=== PATIENT | male | born 1995 | race Caucasian/White ===

== ENCOUNTER 2017-12-08 05:48 | Emergency (ER) | payer OTHER ==
[~2017-12-08] VITALS: Ht 185.4 cm; Wt 79.4 kg
--- NOTE | 2017-12-08 06:16 | NUR ---
Jennyfer saucedo in ED - 12/08/17 at 0727 by RAJ REPORT GIVEN TO SARIKA VEGA FOR GLENDA.
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
--- NOTE | 2017-12-08 06:38 | NUR ---
PT LEFT FOR CT VIA [facility]
[2017-12-08] MEDS ORDERED: HYDROCODONE/APAP 5/325MG 1 EACH TABLET ONE (06:40)
[2017-12-08] MEDS ORDERED: CEFAZOLIN 1 GM ONE (06:41)
[2017-12-08] MEDS ORDERED: WATER FOR INJECTION,STERILE 10 ML ONE (06:41)
[2017-12-08] MEDS ORDERED: ONDANSETRON 4 MG TAB.RAPDIS ONE (06:41)
[2017-12-08] MEDS ORDERED: CEFAZOLIN 1 GM VIAL IM ONE (07:00)
[2017-12-08] MEDS ORDERED: HYDROCODONE/APAP 5/325MG 1 EACH TABLET PO ONE (07:00)
[2017-12-08] MEDS ORDERED: ONDANSETRON 4 MG TAB.RAPDIS PO ONE (07:00)
--- NOTE | 2017-12-08 07:16 | NUR ---
PT RETURNED FROM CT.
--- NOTE | 2017-12-08 07:16 | NUR ---
REPORT GIVEN TO SARIKA VEGA FOR GLENDA.
[2017-12-08] MEDS ORDERED: LIDOCAINE 1%-EPI 1:100,000 20 ML VIAL ONE (07:40)
--- NOTE | 2017-12-08 07:45 | NUR ---
DR HURLEY AT BEDSIDE FOR SUTURE
--- NOTE | 2017-12-08 08:28 | NUR ---
Patient discharged to home in stable condition. Written and verbal after care instructions given. Patient verbalizes understanding of instruction.
[2017-12-08 08:29] VITALS: BP 135/90
--- NOTE | 2017-12-08 08:29 | NUR ---
[employer] AT BEDSIDE
== END 2017-12-08 08:56 | disposition home or self-care (01) ==
LOC: ER 05:52
DX: S02.2XXB Fracture of nasal bones, initial encounter for open fracture (principal); S01.21XA Laceration without foreign body of nose, initial encounter; F10.10 Alcohol abuse, uncomplicated; Y90.9 Presence of alcohol in blood, level not specified; Z98.890 Other specified postprocedural states; Y04.2XXA Assault by strike against or bumped into by another person, initial encounter; Y93.89 Activity, other specified; Y92.89 Other specified places as the place of occurrence of the external cause; Y99.8 Other external cause status
CPT/HCPCS: 70450-TC; 70486-TC; A4606; A6403; J0690; J3490; Q0162; Z7610